=== PATIENT | male | born 1995 | race Caucasian/White ===

== ENCOUNTER 2018-01-29 04:21 | Emergency (ER) | payer OTHER ==
--- NOTE | 2018-01-29 05:38 | ED Physician Documentation ---
History of Present Illness - Stated complaint Stated Complaint: LT RIB PAIN - Chief complaint Chief Complaint: Heent - History obtained from History obtained from: Patient - History of Present Illness Timing: How many days ago (1 (approximately 24 hours [employer] [employer])) Pain level now: 4 Improved by: rest Worsened by: palpation, deep breath (inspiration) - Additonal information Additional information: was "sparring" yesterday morning, accidentally struck in left ribs, c/o gradually increasing pain which was worse this morning Review of Systems Cardiac: reports: Chest pain / pressure (chest wall pain) Respiratory: denies: Dyspnea, Cough, Hemoptysis GI: denies: Abdominal Pain PD PAST MEDICAL HISTORY - Past Medical History Past Medical History: No - Past Surgical History Past Surgical History: Yes - Allergies Allergies/Adverse Reactions: Allergies Allergy/AdvReac Type Severity Reaction Status Date / Time No Known Drug Allergies Allergy Verified 01/29/18 04:36 - Social History Does the pt smoke?: Yes Smoking Status: Current some day smoker Does the pt drink ETOH?: No Does the pt have substance abuse?: No - Immunizations Immunizations are current?: Yes - POLST Patient has POLST: No PD ED PE NORMAL - Vitals Vital signs reviewed: Yes - General General: Alert and oriented X 3, No acute distress, Well developed/nourished - Cardiac Cardiac: RRR, No murmur - Respiratory Respiratory: No respiratory distress, Clear bilaterally - Abdomen Abdomen: Soft, Non tender - Free text exam Free text exam: mild tenderness left anterolateral chest wall over ribs without crepitus Results - Vitals Vitals: Vital Signs - 24 hr 01/29/18 01/29/18 04:36 07:01 Temperature 36.5 C Heart Rate 84 76 Respiratory 18 16 Rate Blood Pressure 142/79 H 121/84 H O2 Saturation 99 99 - Rads (name of study) chest xray PA with left ribs Radiology: Prelim report reviewed, See rad report PD MEDICAL DECISION MAKING - ED course Complexity details: reviewed results, re-evaluated patient, considered differential, d/w patient ED course: I performed bedside US which revealed sharp splenorenal interface (no indication of bleeding). - Sepsis Event Vital Signs: Vital Signs - 24 hr 01/29/18 01/29/18 04:36 07:01 Temperature 36.5 C Heart Rate 84 76 Respiratory 18 16 Rate Blood Pressure 142/79 H 121/84 H O2 Saturation 99 99 Departure - Departure Disposition: 01 Home, Self Care Clinical Impression: Chest wall contusion Condition: Good Instructions: ED Contusion Chest Wall Follow-Up: SAGRARIO Mcmahon [Provider Group] Forms: Activity restrictions Discharge Date/Time: 01/29/18 07:05
--- NOTE | 2018-01-29 06:34 | XRAY Report ---
Procedure Date: 01/29/2018 Accession Number: [id number] / [id number] Procedure: XR - Ribs w/PA Chest LT CPT Code: FULL RESULT: EXAM: LEFT RIB RADIOGRAPHY EXAM DATE: 01/29/2018 06:18 AM. CLINICAL HISTORY: Injury, tenderness. COMPARISON: None. TECHNIQUE: 1 view of the chest and 4 views of the ribs. FINDINGS: Bones: Normal. No fracture or bone lesion. Lungs: No focal opacities. No pneumothorax. No pleural effusions. Mediastinum: Heart and mediastinal contours are unremarkable. Other: None. IMPRESSION: Normal chest and rib radiography. [facility]
[2018-01-29] MEDS ORDERED: IBUPROFEN 600 MG TABLET PO STA (06:44)
[2018-01-29] MEDS ORDERED: HYDROcod/ACET 5/325 Prepack 4 PO STA (06:44)
[2018-01-29 07:05] VITALS: BP 121/84
== END 2018-01-29 07:05 | disposition home or self-care (01) ==
LOC: ED 04:21
DX: S20.212A Contusion of left front wall of thorax, initial encounter (principal); W50.0XXA Accidental hit or strike by another person, initial encounter; Y93.71 Activity, boxing
CPT/HCPCS: 71101; 99283; A9270